=== PATIENT | female | born 1940 | race Hispanic/Latino ===

== ENCOUNTER 2017-02-17 02:40 | Emergency (ER) | payer BC ==
[2017-02-17 02:58] VITALS: BP 146/75; PULSE 105; RESP 18; TEMP 98.4; O2SAT 99
--- NOTE | 2017-02-17 04:10 | ED PDOC ---
HPI: Skin/Bite Injury Time Seen by Provider: 02/17/17 02:49 Chief Complaint (Nursing): Abnormal Skin Integrity Chief Complaint (Provider): Abnormal Skin Integrity History Per: Patient History/Exam Limitations: no limitations Onset/Duration Of Symptoms: Other (x1 week) Location Of Injury: Right: Face, Anterior: Face Quality Of Symptoms: Itching, Swollen Additional Complaint(s): 77 year old female presents to ED with complaints of right facial swelling x1 week and has no past medical history. Patient notes there was initially a bump on her right cheek that she scratched. States that pharmacy gave her an acne treatment for it, which then caused her right cheek to become itchy. (-) trouble breathing, fever, or dental pain. PCP: Wagner Ryder Past Medical History Reviewed: Historical Data, Nursing Documentation, Vital Signs Vital Signs: Last Vital Signs Temp 98.4 F 02/17/17 02:53 Pulse 105 H 02/17/17 02:53 Resp 18 02/17/17 02:53 BP 146/75 02/17/17 02:53 Pulse Ox 99 02/17/17 06:36 - Medical History PMH: Graves' Disease - Surgical History Surgical History: No Surg Hx - Family History Family History: States: No Known Family Hx - Social History Current smoker - smoking cessation education provided: No Ex-Smoker (has not smoked in the last 12 months): No Drugs: Denies - Home Medications Home Medications: Ambulatory Orders Medication Instructions Recorded Cephalexin [Keflex] 500 mg PO Q6H #28 capsule 02/17/17 DiphenhydrAMINE [Benadryl] 25 mg PO Q6H PRN #10 cap 02/17/17 predniSONE [Prednisone] 40 mg PO DAILY #8 tab 02/17/17 - Allergies Allergies/Adverse Reactions: Allergies Allergy/AdvReac Type Severity Reaction Status Date / Time No Known Allergies Allergy Verified 02/17/17 02:53 Review of Systems ROS Statement: Except As Marked, All Systems Reviewed And Found Negative Constitutional: Negative for: Fever ENT: Negative for: Other ((-) dental pain) Respiratory: Negative for: Shortness of Breath Physical Exam - Reviewed Nursing Documentation Reviewed: Yes Vital Signs Reviewed: Yes - Physical Exam Appears: Positive for: Non-toxic, No Acute Distress Head Exam: Positive for: ATRAUMATIC, NORMOCEPHALIC Skin: Positive for: Normal Color (Right cheek part of it (lower) erythematous and swollen. non tender. No open wounds, dentition intact. No intraoral abscess. ), Warm, Dry Eye Exam: Positive for: Normal appearance, EOMI, PERRL ENT: Positive for: Normal ENT Inspection Neck: Positive for: Normal Cardiovascular/Chest: Positive for: Regular Rate, Rhythm. Negative for: Murmur Respiratory: Positive for: Normal Breath Sounds. Negative for: Respiratory Distress Gastrointestinal/Abdominal: Positive for: Normal Exam, Soft. Negative for: Tenderness Extremity: Positive for: Normal ROM Neurologic/Psych: Positive for: Alert, Oriented. Negative for: Motor/Sensory Deficits - Laboratory Results Result Diagrams: 02/17/17 04:22 02/17/17 04:22 - ECG O2 Sat by Pulse Oximetry: 99 (RA) Pulse Ox Interpretation: Normal Medical Decision Making Medical Decision Makin Initial impression:R facial swelling Initial plan: * Labs * Benadryl 25mg IVP * NS IV * Prednisone 40mg PO * BCx * Re-eval 0626 Upon re-evaluation, patient states that she feels better but still feels slightly itchy. (-) fever. normal wbc. unlikely infection/cellulitis. more likely allergic. Labs reviewed: WBC within normal limits. BUN creatinine is slightly elevated. Patient is medically stable for discharge home and will follow up with PCP today. Patient will go home with prescription for antibiotics. Patient will also follow up with PCP regarding BUN creatinine level. pt awre of prior renal function. pt has primary care dr killian today Scribe Attestation: Documented by Vandana Belcher acting as a scribe for Negrita Matamoros MD. Scribe Attestation: All medical record entries made by the Scribe were at my direction and personally dictated by me. I have reviewed the chart and agree that the record accurately reflects my personal performance of the history, physical exam, medical decision making, and the department course for this patient. I have also personally directed, reviewed, and agree with the discharge instructions and disposition. Disposition - Clinical Impression Clinical Impression: Rash, Allergic reaction - Patient ED Disposition Is Patient to be Admitted: No Counseled Patient/Family Regarding: Studies Performed, Diagnosis - Disposition Disposition: Routine/Home Disposition Time: 05:40 Condition: IMPROVED Additional Instructions: follow up with your primary doctor in 1-2 days return to the ED with any worsening or concerning symptoms Prescriptions: Cephalexin [Keflex] 500 mg PO Q6H #28 capsule DiphenhydrAMINE [Benadryl] 25 mg PO Q6H PRN #10 cap PRN Reason: Rash predniSONE [Prednisone] 40 mg PO DAILY #8 tab Instructions: Acute Rash (ED), Impaired Kidney Function (ED), General Allergic Reaction (ED) Forms: [facility] Connect (Kenyan)
[2017-02-17] MEDS: Sodium Chloride 0.9% 1,000 ML IV STA (04:25)
[2017-02-17 04:32] LABS: ALB/GLOB RATIO 1.2 (1.0-2.1); BILIRUBIN,TOTAL 0.5 mg/dl (0.2-1.3); CALCIUM 9.8 mg/dL (8.4-10.2); POTASSIUM 4.5 MMOL/L (3.6-5.0); TOTAL PROTEIN 8.1 G/DL (6.3-8.2)
[2017-02-17] MEDS: DiphenhydrAMINE 50 mg/ml Inj IVP STA (04:32)
[2017-02-17 04:35] LABS: BASO # 0.1 K/uL (0.0-0.2); EOS # 0.2 K/uL (0.0-0.7); EOS % 2.7 % (0.0-4.0); HEMATOCRIT 35.9 % (34.0-47.0); LYMPH # 2.5 K/uL (1.0-4.3); LYMPH % 31.8 % (20.0-40.0); MEAN CELL VOLUME 91.3 fl (81.0-99.0); MEAN CORPUSCULAR HEMOGLOBIN 30.4 pg (27.0-31.0); MEAN CORPUSCULAR HGB CONC 33.3 g/dL (33.0-37.0); MEAN PLATELET VOLUME 8.7 fl (7.2-11.7); MONO # 0.7 K/uL (0.0-0.8); MONO % 9.1 % (0.0-10.0); NEUT # 4.3 K/uL (1.8-7.0); NEUT % 55.4 % (50.0-75.0); RED CELL DISTRIBUTION WIDTH 13.6 % (11.5-14.5); WHITE BLOOD COUNT 7.8 K/uL (4.8-10.8)
== END 2017-02-17 06:45 | disposition home or self-care (01) ==
LOC: H.ER 02:40
DX: T78.40XA Allergy, unspecified, initial encounter (principal); E05.00 Thyrotoxicosis with diffuse goiter without thyrotoxic crisis or storm
CPT/HCPCS: 80053; 82948; 85025; 87040; 96360; 96361; 99282; J7040

== ENCOUNTER 2017-09-29 07:24 | Day surgery (SDC) | payer BC ==
[2017-09-25 08:18] VITALS: BMI 39.4
[2017-09-29] MEDS ORDERED: Phenylephrine 2.5% Opht Soln OD ONE ×2 (09:00)
[2017-09-29] MEDS ORDERED: Tropicamide 1% Opht 150 DROP/15 ML OD ONE ×2 (09:00)
[2017-09-29] MEDS ORDERED: Flurbiprofen 0.03% Opht SOLN OD ONE ×2 (09:00)
[2017-09-29] MEDS ORDERED: Midazolam 2 MG/2 ML VIAL ONE (10:43)
[2017-09-29] MEDS ORDERED: Lactated Ringer's 1,000 ML IV ONE (10:48)
[2017-09-29] MEDS ORDERED: Tetracaine 0.5% Ophth 2 ML BOTTLE OD ONE (11:00)
[2017-09-29] MEDS ORDERED: Povidone Iodine 5% Opht SOLUTION OD ONE (11:01)
[2017-09-29] MEDS ORDERED: Acetylcholine 1% Opth System Pack IO ONE (11:16)
[2017-09-29] MEDS ORDERED: Lidocaine 1% 20 MG/2 ML PF AMP EP ONE (11:17)
[2017-09-29] MEDS ORDERED: EPINEPHrine 1 mg/ml (1:1000) Inj IV ONE (11:19)
[2017-09-29] MEDS ORDERED: Maxitrol Opht Susp OD ONE (11:19)
[2017-09-29] MEDS ORDERED: Pilocarpine 1% Opht Soln OD ONE (11:19)
[2017-09-29 12:27] VITALS: RESP 18
[2017-09-29 12:55] VITALS: O2SAT 95
[2017-09-29 12:56] VITALS: BP 128/68; PULSE 69; TEMP 98
--- NOTE | 2017-10-02 08:03 | OP ---
PROCEDURE DATE : 09/29/2017 SURGEON: DARLINE GRIMES MD ANESTHESIOLOGIST: DEDE DEXTER MD ANESTHESIA: LOCAL / IV SEDATION PREOPERATIVE DIAGNOSIS: CATARACT RIGHT EYE. POSTOPERATIVE DIAGNOSIS: CATARACT RIGHT EYE. OPERATION: CLEAR CORNEAL PHACOEMULSIFICATION WITH LENS IMPLANT RIGHT EYE. PREPARATION AND PROCEDURE: After the patient was prepped and draped in the usual manner for sterile ophthalmic surgery, local IV sedation was administered ; eye seals were applied to the upper and lower lid margins and an adult wire lid speculum was placed within the lids. Under microsurgical control, a two- step clear corneal incision was made into the anterior chamber. The initial incision was perpendicular to the corneal plane. The second incision with the keratome was placed at a 45-degree angle to the first incision. One cc of one percent Xylocaine MPF was instilled into the anterior chamber to achieve proper intraocular anesthesia. At this time, the Viscoelastic was injected into the anterior chamber for protection of the endothelium and for maintenance of the chamber depth. A 360-degree continuous curvilinear capsulorrhexis was performed using a pre-bent 25-gauge needle. Hydrodissection and hydrodelineation were performed using a Tejeda cannula and balanced salt solution. Utilizing the tip of the Tejeda cannula, the nucleus was rotated freely within the capsular bag. A standard one-handed phacoemulsification was utilized at this time for sculpting and rotating of the nucleus. The nucleus was fragmented in its entirety and aspirated without any consequence. A standard I&A was carried out for the residual cortical material. No residual material was noted within the capsular bag. The posterior capsule was noted to be clear. Additional Viscoelastic was injected into the capsular bag in preparation for lens implantation. After this has been satisfactorily achieved the intraocular lens injected through the corneal incision into the capsular bag. The intraocular lens was manipulated until it was properly oriented and the Viscoelastic was evacuated from the capsular bag and anterior chamber. The anterior chamber was reformed with balanced salt solution. The corneal incision was irrigated with BSS. The intraocular pressure was found to be within normal limits. This terminated the procedure. The speculum and lid drapes were removed. TobraDex ophthalmic suspension and Pilocarpine 1% drops one drop was applied to the eye. POSTOPERATIVE CONDITION: The patient was brought to the Post anesthesia Recovery area with stable vital signs. DDARLINE RABAGO MD
== END 2017-09-29 15:00 | disposition home or self-care (01) ==
LOC: H.OPSURG 07:24
PROVIDERS: ATTEND Ophthalmology
DX: H26.8 Other specified cataract (principal); E66.9 Obesity, unspecified; M54.5 Low back pain; F41.8 Other specified anxiety disorders; E11.22 Type 2 diabetes mellitus with diabetic chronic kidney disease; I12.9 Hypertensive chronic kidney disease with stage 1 through stage 4 chronic kidney disease, or unspecified chronic kidney disease; N18.9 Chronic kidney disease, unspecified
CPT/HCPCS: 66984; 82948; J0171; J2250; J3010; J7120; V2632

== ENCOUNTER 2017-10-06 08:45 | Day surgery (SDC) | payer BC ==
[~2017-10-06 08:45] MED LIST: Flurbiprofen 0.03% Opht SOLN OS ONE
[2017-10-06] MEDS ORDERED: Maxitrol Opht Susp ONE (08:59)
[2017-10-06] MEDS ORDERED: Tetracaine 0.5% Ophth 2 ML BOTTLE ONE (08:59)
[2017-10-06] MEDS ORDERED: EPINEPHrine 1 mg/ml (1:1000) Inj ONE (08:59)
[2017-10-06] MEDS ORDERED: Pilocarpine 1% Opht Soln ONE (09:00)
[2017-10-06] MEDS ORDERED: BSS 15 ML 45 ML IR ONE (09:00)
[2017-10-06] MEDS ORDERED: CA CL/K CL/NA CL 500 ML IR ONE (09:00)
[2017-10-06] MEDS ORDERED: Chondroitin/Hyaluronate Opth Syringe KIT (0.55 ml-0.5 ml) IO ONE (09:01)
[2017-10-06] MEDS ORDERED: Povidone Iodine 5% Opht SOLUTION ONE (09:01)
[2017-10-06] MEDS ORDERED: Flurbiprofen 0.03% Opht SOLN OS ONE (09:20)
[2017-10-06] MEDS ORDERED: Phenylephrine 2.5% Opht Soln OS ONE ×2 (09:20→09:36)
[2017-10-06] MEDS ORDERED: Tropicamide 1% Opht 150 DROP/15 ML OS ONE ×2 (09:20→09:38)
[2017-10-06 09:36] VITALS: BMI 39.0
[2017-10-06] MEDS ORDERED: Lactated Ringer's 1,000 ML IV ONE ×2 (10:05)
[2017-10-06] MEDS ORDERED: Midazolam 2 MG/2 ML VIAL ONE (10:06)
[2017-10-06] MEDS ORDERED: Lidocaine 1% 20 MG/2 ML PF AMP EP ONE (10:20)
[2017-10-06] MEDS ORDERED: Acetylcholine 1% Opth System Pack IO ONE (10:30)
[2017-10-06 11:39] VITALS: RESP 20
[2017-10-06 14:35] VITALS: BP 140/70; PULSE 78; TEMP 97; O2SAT 97
--- NOTE | 2017-10-09 07:53 | OP ---
PROCEDURE DATE : SURGEON: DARLINE GRIMES MD ANESTHESIOLOGIST: JADE OTT MD ANESTHESIA: LOCAL / IV SEDATION PREOPERATIVE DIAGNOSIS: CATARACT LEFT EYE. POSTOPERATIVE DIAGNOSIS: CATARACT LEFT EYE. OPERATION: CLEAR CORNEAL PHACOEMULSIFICATION WITH LENS IMPLANT LEFT EYE. PREPARATION AND PROCEDURE: After the patient was prepped and draped in the usual manner for sterile ophthalmic surgery, local IV sedation was administered ; eye seals were applied to the upper and lower lid margins and an adult wire lid speculum was placed within the lids. Under microsurgical control, a two- step clear corneal incision was made into the anterior chamber. The initial incision was perpendicular to the corneal plane. The second incision with the keratome was placed at a 45-degree angle to the first incision. One cc of one percent Xylocaine MPF was instilled into the anterior chamber to achieve proper intraocular anesthesia. At this time, the Viscoelastic was injected into the anterior chamber for protection of the endothelium and for maintenance of the chamber depth. A 360-degree continuous curvilinear capsulorrhexis was performed using a pre-bent 25-gauge needle. Hydrodissection and hydrodelineation were performed using a Tejeda cannula and balanced salt solution. Utilizing the tip of the Tejeda cannula, the nucleus was rotated freely within the capsular bag. A standard one-handed phacoemulsification was utilized at this time for sculpting and rotating of the nucleus. The nucleus was fragmented in its entirety and aspirated without any consequence. A standard I&A was carried out for the residual cortical material. No residual material was noted within the capsular bag. The posterior capsule was noted to be clear. Additional Viscoelastic was injected into the capsular bag in preparation for lens implantation. After this has been satisfactorily achieved the intraocular lens injected through the corneal incision into the capsular bag. The intraocular lens was manipulated until it was properly oriented and the Viscoelastic was evacuated from the capsular bag and anterior chamber. The anterior chamber was reformed with balanced salt solution. The corneal incision was irrigated with BSS. The intraocular pressure was found to be within normal limits. This terminated the procedure. The speculum and lid drapes were removed. TobraDex ophthalmic suspension and Pilocarpine 1% drops one drop was applied to the eye. POSTOPERATIVE CONDITION: The patient was brought to the Post anesthesia Recovery area with stable vital signs. DDARLINE RABAGO MD
== END 2017-10-06 14:30 | disposition home or self-care (01) ==
LOC: H.OPSURG 08:45
PROVIDERS: ATTEND Ophthalmology
DX: H25.812 Combined forms of age-related cataract, left eye (principal); E11.9 Type 2 diabetes mellitus without complications; I10 Essential (primary) hypertension
CPT/HCPCS: 66984; 82948; J0171; J2250; J7120; V2632